=== PATIENT | female | born 2000 | race Caucasian/White ===

== ENCOUNTER 2020-02-15 09:55 | Inpatient (IN) ==
[2020-02-15] MEDS ORDERED: MOM Conc 10 ML UD.LIQ PO PRN (11:27)
[2020-02-15] MEDS ORDERED: *HR* LORazepam 1 MG TABLET PO PRN (11:27)
[2020-02-15] MEDS ORDERED: Haloperidol Lactate 5 MG/ML VIAL IM PRN (11:27)
[2020-02-15] MEDS ORDERED: Mag Hydrox/Al Hydrox/Simeth 30 ML UDC PO PRN (11:27)
[2020-02-15] MEDS ORDERED: traZODone 50 MG TABLET PO PRN (11:27)
[2020-02-15] MEDS ORDERED: haloperidoL 5 MG TABLET PO PRN (11:27)
[2020-02-15] MEDS ORDERED: hydrOXYzine pamoate 25 MG CAPSULE PO PRN (11:27)
[2020-02-15] MEDS ORDERED: Acetaminophen 325 MG TABLET PO PRN (11:27)
[2020-02-15] MEDS ORDERED: *HR* LORazepam 2 MG/ML VIAL IM PRN (11:27)
[2020-02-16 09:06] VITALS: BP 114/70
== END 2020-02-16 11:10 | disposition home or self-care (01) | DRG 751 ==
LOC: EMEROOARM 09:55 → 1ANU 11:25
PROVIDERS: ADMIT Psychiatry & Neurology Psychiatry; ATTEND Psychiatry & Neurology Psychiatry